=== PATIENT | female | born 1965 | race Hispanic/Latino ===

== ENCOUNTER 2016-07-21 08:10 | Outpatient (CLI) | payer OTHER ==
[2016-07-21] MEDS ORDERED: PROVENTIL IH ONE (08:17)
== END 2016-07-21 08:11 | disposition home or self-care (01) ==
LOC: PF 08:10
PROVIDERS: ATTEND Internal Medicine
DX: Z02.71 Encounter for disability determination (principal)
CPT/HCPCS: 94060; 94640; 94729